=== PATIENT | male | born 1960 | race Caucasian/White ===

== ENCOUNTER → 2023-08-23 08:10 | Outpatient (REF) | payer OTHER, SELFPAY | LOC: DHCBC MAIN 08:10 | PROVIDERS: ATTENDING PHYSICIAN Internal Medicine Cardiovascular Disease; FAMILY PHYSICIAN Internal Medicine | DX: R07.89 Other chest pain (principal); Z82.49 Family history of ischemic heart disease and other diseases of the circulatory system; I10 Essential (primary) hypertension | CPT/HCPCS: 93306 ==

== ENCOUNTER 2023-09-11 06:23 | Day surgery (SDC) | payer OTHER, SELFPAY ==
[2023-09-02 09:10] VITALS: BMI 35.2
[2023-09-02 09:58] LABS: % Basophils 1.1 % (0-2); % Eosinophils 3.4 % (0-6); % Immature Granulocytes 0.2 % (0-0.5); % Lymphocytes 21.2 % (20.5-51.1); % Monocytes 9.4 % (1.7-9.3); % Neutrophils 64.7 % (42.2-75.2); Absolute Basophils 0.1 10^3/uL (0-0.2); Absolute Eosinophils 0.2 10^3/uL (0-0.7); Absolute Monocytes 0.4 10^3/uL (0.1-0.6); Hematocrit 44.2 % (39.0-52.0); Hemoglobin 14.7 g/dL (13.0-18.0); Mean Corp Hgb Conc. 33.3 g/dL (33.0-37.0); Mean Corpuscular Hgb 29.9 pg (27.0-31.0); Mean Platelet Volume 11.2 fL (7.4-10.4); Nucleated Red Blood Cells % 0 % (-); Platelet Count 171 10^3/uL (130-400); Red Blood Cell Count 4.91 10^6/uL (4.70-6.10); Red Cell Dist. Width 12.8 % (11.5-14.5); White Blood Cell Count 4.7 10^3/uL (4.8-10.8)
[2023-09-02 10:25] LABS: ALT (SGPT) 14 U/L (0-50); AST (SGOT) 22 U/L (17-59); Albumin 4.3 g/dl (3.5-5.0); Alkaline Phosphatase 62 U/L (38-126); Blood Urea Nitrogen 20 mg/dl (9-20); Calcium 9.1 mg/dl (8.4-10.2); Carbon Dioxide 28 mmol/L (22-30); Chloride 106 mmol/L (98-107); Estimated Creatinine Clearance 105 ml/min; Glucose 108 mg/dl (70-99); Potassium 4.1 mmol/L (3.5-5.1); Sodium 138 mmol/L (135-145); Total Bilirubin 0.5 mg/dl (0.2-1.3); Total Protein 7.2 g/dl (6.3-8.2); eGFR > 60.00
[2023-09-11] VITALS (13 sets, daily range): BP systolic 125–191; BP diastolic 70–110
[2023-09-11] MEDS: NSS 334 ML IV (07:25)
[2023-09-11] MEDS: LOW STRENGTH ASPIRIN 324 MG PO (07:25)
[2023-09-11 08:07] LABS: INR 1.45; PT 17.8 Sec (11.4-14.6)
--- NOTE | 2023-09-11 08:21 | ITS.CL.CATH ---
Email Campaign Specialist - Catheterization
Cardiac Catheterization
Procedure Report:
CARDIAC CATHETERIZATION REPORT
Date of Procedure: 09/11/2023
Referring: Obi Shrestha D.O.
INDICATION: Typical angina, new cardiomyopathy.
PROCEDURE:
1. Left heart catheterization.
2. Coronary angiography.
ACCESS:
6 [place] right radial artery.
CATHETERS:
1. 5 [place] JR4.
2. 5 [place] JL 3.5.
HEMODYNAMIC DATA
Weight (kg):������������������������������� 111.1
AO (s/d/x, mmHg):��������������������� 167/99/120
LV (s/x mmHg):�������������������������� 175/17
LEFT VENTRICULOGRAPHY:�� Not performed.
CORONARY ANGIOGRAPHY
Dominance:������������������������������� Right.
Left Main:����������������������������������� Normal size, bifurcating vessel. There is no coronary artery disease.
LAD:������������������������������������������� Normal size vessel giving rise to 2 notable diagonals in rapid succession. There are minor luminal irregularities in the LAD including a 30% lesion in the proximal vessel. There is a 70-80% lesion
in the ostium of the moderate least sized first diagonal.
Ramus:�������������������������������������� Congenitally absent.
Circumflex:��������������������������������� Large size, nondominant vessel giving rise to a small OM1 and OM 2. The third obtuse marginal is a large vessel supplying majority inferolateral wall. The vessel and terminates as a left posterolateral
branch. There are minor luminal irregularities.
RCA:������������������������������������������ Normal size, dominant vessel. The mid vessel is severely tortuous with a 170 degree bend, followed by a 90 degree bend in the opposite direction. There is a 70% lesion traversing the entirety of this
tortuous segment. There are minor luminal irregularities elsewhere.
INTERVENTION(S)
None.
Closure Device:������������������������� Vascular band.
Radiation (mGy):������������ �����������392.28
DAP (cm2.Gy):�������������������������� 32.7971
Fluoroscopy time (minutes):������ 2.0
Sedation time (minutes):������������ 21
CONCLUSIONS
1.� Right dominant circulation with a 70% lesion spanning an extremely tortuous segment of the mid RCA, luminal irregularities in the circumflex, a 30% lesion in the proximal LAD and a 70-80% lesion in the true ostium of the moderately sized first
diagonal.
2.� Mildly elevated filling pressures (LVEDP = 17 mmHg at 111.1 kg).
3. Mildly reduced systolic function (LVEF = 46%) on transthoracic echocardiography.
RECOMMENDATIONS:
1. Expectant management after cardiac catheterization via right radial approach.
2. Limited weight bearing on the right wrist for one week.
3. Given the relatively complex nature of any intervention (traversing severe tortuosity, likely leading to vessel straightening, PCI of a true ostial lesion and a branch vessel), we elected to pursue medical therapy before attempting an
intervention.
4. Start isosorbide mononitrate 30 mg daily.
5. Discontinue nebivolol in favor of carvedilol 6.25 mg twice daily.
6. Continue guideline directed medical therapy as hemodynamics will tolerate.
7. Start high-dose, high potency statin.
8. Repeat echocardiogram in 3 months.
9. If the patient is still symptomatic after 3 months of guideline directed medical therapy, we will consider percutaneous intervention at that time.
Copy to: Obi Shrestha D.O., Socrates Farmer M.D.
Obi Shrestha, , FACC, FACP
== END 2023-09-11 11:25 | disposition home or self-care (01) ==
LOC: CATH 06:23
PROVIDERS: ATTENDING PHYSICIAN Internal Medicine Cardiovascular Disease; FAMILY PHYSICIAN Internal Medicine
DX: I25.10 Atherosclerotic heart disease of native coronary artery without angina pectoris (principal); R07.9 Chest pain, unspecified; I42.9 Cardiomyopathy, unspecified; I10 Essential (primary) hypertension; E78.5 Hyperlipidemia, unspecified; I44.7 Left bundle-branch block, unspecified; I35.1 Nonrheumatic aortic (valve) insufficiency; G47.33 Obstructive sleep apnea (adult) (pediatric); K21.9 Gastro-esophageal reflux disease without esophagitis; Z85.828 Personal history of other malignant neoplasm of skin; Z79.82 Long term (current) use of aspirin; Z79.01 Long term (current) use of anticoagulants
CPT/HCPCS: 36415; 80053; 85025; 85610; 93005; 93458; C1894; Q9967

== ENCOUNTER → 2023-12-09 09:46 | Outpatient (REF) | payer OTHER, SELFPAY | LOC: RCS 09:46 | PROVIDERS: ATTENDING PHYSICIAN Nurse Practitioner; FAMILY PHYSICIAN Internal Medicine | DX: I42.9 Cardiomyopathy, unspecified (principal) | CPT/HCPCS: 93308; 93321; 93325 ==

== ENCOUNTER → 2024-02-04 12:25 | Outpatient (REF) | payer OTHER, SELFPAY | LOC: RAD 12:25 | PROVIDERS: ATTENDING PHYSICIAN Internal Medicine | DX: R05.9 Cough, unspecified (principal); R26.89 Other abnormalities of gait and mobility; R41.3 Other amnesia | CPT/HCPCS: 70450; 71046 ==

== ENCOUNTER → 2024-10-19 09:55 | Outpatient (REF) | payer OTHER, SELFPAY | LOC: EMG 09:55 | PROVIDERS: ATTENDING PHYSICIAN Internal Medicine | DX: R20.2 Paresthesia of skin (principal); R20.0 Anesthesia of skin | CPT/HCPCS: 95886; 95910 ==